=== PATIENT | female | born 1965 | race Two or more races ===

== ENCOUNTER 2024-09-22 09:52 | Outpatient (AMB) | payer MEDICAID, SELFPAY ==
[2024-09-22 10:29] VITALS: BP 162/89; PULSE 70; RESP 18; TEMP 36.6; O2SAT 97; BMI 29.5
--- NOTE | 2024-09-22 10:29 | PD.ORTHCLVIS ---
Vital signs 09/22/24 10:29 Height 1.6 m Height Method Stated Weight 75.523 kg Weight Measurement Method Standing Scale BMI 29.5 BP 162/89 H Blood Pressure Source Automatic Cuff Blood Pressure Location Right Upper Arm Position Sitting Respiration 18 Pulse 70 Pulse Source Monitor Temp 97.8 F Temp Source Temporal Artery Scan Pulse Oximetry (%) 97 Oxygen Delivery Method Room Air Med/Allergies Allergies & Medications Allergies No Known Allergies Allergy (Verified 09/22/24 10:30) Medication Reconciliation ergocalciferol (vitamin D2) 1,250 mcg (50,000 unit) capsule (Drisdol) 1,250 mcg PO QWEEK 05/15/24 [History Confirmed 09/22/24] losartan 100 mg tablet 100 mg PO DAILY 05/15/24 [History Confirmed 09/22/24] acetaminophen 500 mg tablet (Acetaminophen Extra Strength) 1,000 mg (2 x 500 mg) PO Q6H PRN pain #90 tabs 05/18/24 [Rx Confirmed 09/22/24] aspirin 81 mg tablet,delayed release 81 mg PO BID #60 tabs 05/18/24 [Rx Confirmed 09/22/24] doxycycline hyclate 100 mg tablet 100 mg PO BID #14 tabs 05/18/24 [Rx Confirmed 09/22/24] meloxicam 7.5 mg tablet 7.5 mg PO QDAY #30 tabs 05/18/24 [Rx Confirmed 09/22/24] oxycodone 5 mg tablet 5 mg PO Q6H PRN pain #28 tabs 05/18/24 [Rx Confirmed 09/22/24] sennosides 8.6 mg-docusate sodium 50 mg tablet (Senna-S) 1 tab-cap PO QDAY #30 tabs 05/18/24 [Rx Confirmed 09/22/24] acetaminophen 500 mg tablet (Acetaminophen Extra Strength) 1,000 mg (2 x 500 mg) PO Q6H PRN pain #90 tabs 06/01/24 [Rx Confirmed 09/22/24] oxycodone 5 mg tablet 5 mg PO Q6H PRN pain #28 tabs 06/01/24 [Rx Confirmed 09/22/24] gabapentin 300 mg capsule 300 mg PO .qhs #30 caps 06/18/24 [Rx Confirmed 09/22/24] meloxicam 7.5 mg tablet 7.5 mg PO QDAY #30 tabs 06/18/24 [Rx Confirmed 09/22/24] oxycodone 5 mg tablet 5 mg PO Q6H PRN pain #28 tabs 06/18/24 [Rx Confirmed 09/22/24] gabapentin 300 mg capsule 300 mg PO .qhs #60 caps 09/22/24 [Rx] Subjective Visit Visit for: follow up visit Immunization / Flu Flu Vaccine in the Last 12 Months: No Flu Vaccine Exclusion Criteria: No Exclusion Criteria History of Present Illness Chief complaint: POST OP R TKA Date of 1st surgery (if applicable): 05/18/24 Patient is 4 months postop status post right total knee replacement. She is doing well. She has minimal pain Personal History Red flag PMH: none (NON SMOKER ) Pain Pain level (0-10): 8 Pain duration: WHEN BENDING Pain location: posterior Pain quality: sharp, dull and aching Pain timing: night Associated signs & symptoms: weakness Ambulatory data Ambulatory device: cane Treatments Improvement with previous injections: No Improvement with PT: No Improvement with NSAIDS: no Review of Systems Review of Systems: All systems negative unless otherwise noted in HPI. Exam Exam Patient is in no acute distress and is cooperative with the examination today. Patient has a normal mood and affect. Breathing is nonlabored. In no respiratory distress. Bilateral extremities were evaluated and demonstrates sensation intact to light touch. Palpable pedal pulses are present. No significant edema is present. Right knee incision is clean dry and intact. Right knee range of motion is 0-1 20 Patient has cementless total knee replacement that is In good position and alignment Assessment and Plan Problem List (1) Bilateral primary osteoarthritis of knee: Status: Acute Plan: Patient is doing well from her total knee replacement (2) History of total right knee replacement: Status: Acute Plan Patient is a 58-year-old female status post right total knee replacement. She is doing well. She has minimal pain. The patient is doing well and we will see her in approximately 3-4 months Office Procedures GNS Level of Care Nursing/Assessment Patient Status: Established Patient Nursing Assessment/Reassesment: Medication Reconciliation, Update PMH in EMR and Vital Signs Coordination of Care: Complex Care and Chronic Disease 1-5, Education Complex Pt/Fam, Consent,records obtained, informed consent and Staff clarify orders Special Needs: Language special needs Established Patient Charge Established Patient Point Assignment: 90 Established Patient Point Charge: EP Level 3 (80-115) Past Medical History Past Medical History Have you ever been diagnosed with any of the following: Neurological Problems Seizures: No Fall's Palsy: Yes (left) Cardiology Problems Congestive Heart Failure: No Hypertension: Yes Varicose Veins: Yes Respiratory Problems Chronic Obstructive Pulmonary Disease (COPD): No Asthma: Yes Smoking: No Smoking Cessation Counseling: No Smoking Exposure: No Stomache/Intestinal Problems Hepatitis: No Genital/Urinary Problems Renal Disease: No Kidney Stones: Yes Reproductive Problems Previous Pregnancies: Yes Musculoskeletal Problems Arthritis: Yes Endocrine Problems Diabetes Mellitus Type 1: No Diabetes Mellitus Type 2: Yes (chooses not to take med) Other Problems Hospitalization: Yes (surgery) Shingles: No Blood Transfusions: Yes Blood Transfusion Reaction: No Anesthesia Reactions: No Chicken Pox: Yes Cancer: No Surgical History Hysterectomy: Yes
== END 2024-09-22 10:50 | disposition home or self-care (01) ==
PROVIDERS: PCP Physician Assistant; Referring Provider Physician Assistant; Supervising Provider Orthopaedic Surgery Adult Reconstructive Orthopaedic Surgery; Visit Provider Orthopaedic Surgery Adult Reconstructive Orthopaedic Surgery
DX: M17.0 Bilateral primary osteoarthritis of knee (principal); Z96.651 Presence of right artificial knee joint; I10 Essential (primary) hypertension
CPT/HCPCS: 99213; G0463

== ENCOUNTER 2024-10-20 09:51 | Outpatient (AMB) | payer MEDICAID, SELFPAY ==
[2024-10-20 10:20] VITALS: BP 122/77; PULSE 85; RESP 18; TEMP 36.1; O2SAT 98; BMI 29.9
--- NOTE | 2024-10-20 10:20 | PD.ORTHCLVIS ---
Vital signs 10/20/24 10:20 Height 1.6 m Height Method Stated Weight 76.742 kg Weight Measurement Method Standing Scale BMI 29.9 BP 122/77 Blood Pressure Source Automatic Cuff Blood Pressure Location Right Upper Arm Position Sitting Respiration 18 Pulse 85 Pulse Source Monitor Temp 96.9 F Temp Source Temporal Artery Scan Pulse Oximetry (%) 98 Oxygen Delivery Method Room Air Med/Allergies Allergies & Medications Allergies No Known Allergies Allergy (Verified 10/20/24 10:21) Medication Reconciliation losartan 100 mg tablet 100 mg PO DAILY 05/15/24 [History Confirmed 10/20/24] gabapentin 300 mg capsule 300 mg PO .qhs #60 caps 09/22/24 [Rx Confirmed 10/20/24] Subjective Visit Visit for: follow up visit and knee Immunization / Flu Flu Vaccine in the Last 12 Months: No Flu Vaccine Exclusion Criteria: Refused by Patient and No Exclusion Criteria History of Present Illness Chief complaint: FOLLOW UP ON KNEE PAIN Date of 1st surgery (if applicable): 05/18/24 Patient is 5 months postop status post right total knee replacement. She is doing well. She has minimal pain Personal History Red flag PMH: none (NON SMOKER ) Pain Pain level (0-10): 7 Pain duration: AT NIGHT Pain location: anterior and posterior Pain quality: sharp, burning, shocking, electric and tingling Pain timing: night and increases with activity Associated signs & symptoms: numbness Ambulatory data Ambulatory device: cane Treatments Improvement with previous injections: No Improvement with PT: No Improvement with NSAIDS: n/a Review of Systems Review of Systems: All systems negative unless otherwise noted in HPI. Exam Exam Patient is in no acute distress and is cooperative with the examination today. Patient has a normal mood and affect. Breathing is nonlabored. In no respiratory distress. Bilateral extremities were evaluated and demonstrates sensation intact to light touch. Palpable pedal pulses are present. No significant edema is present. Right knee incision is clean dry and intact. Right knee range of motion is 0-1 20 Patient has cementless total knee replacement that is In good position and alignment Assessment and Plan Problem List (1) Bilateral primary osteoarthritis of knee: Status: Acute Plan: Patient is doing well from her total knee replacement (2) History of total right knee replacement: Status: Acute Plan Patient is a 58-year-old female status post right total knee replacement. She is doing well. She has minimal pain. He has some pain posteriorly. We will send her prescription for therapy as she stopped it prematurely before due to pain. We will have to talk about her left knee at some point as this is bothering her significantly more than the right Office Procedures GNS Level of Care Nursing/Assessment Patient Status: Established Patient Nursing Assessment/Reassesment: Medication Reconciliation, Update PMH in EMR and Vital Signs Coordination of Care: Complex Care and Chronic Disease 1-5, Education Complex Pt/Fam, Consent,records obtained, informed consent, Results/Orders obtained and Staff clarify orders Special Needs: Language special needs Established Patient Charge Established Patient Point Assignment: 95 Established Patient Point Charge: EP Level 3 (80-115) Past Medical History Past Medical History Have you ever been diagnosed with any of the following: Neurological Problems Seizures: No Fall's Palsy: Yes (left) Cardiology Problems Congestive Heart Failure: No Hypertension: Yes Varicose Veins: Yes Respiratory Problems Chronic Obstructive Pulmonary Disease (COPD): No Asthma: Yes Smoking: No Smoking Cessation Counseling: No Smoking Exposure: No Stomache/Intestinal Problems Hepatitis: No Genital/Urinary Problems Renal Disease: No Kidney Stones: Yes Reproductive Problems Previous Pregnancies: Yes Musculoskeletal Problems Arthritis: Yes Endocrine Problems Diabetes Mellitus Type 1: No Diabetes Mellitus Type 2: Yes (chooses not to take med) Other Problems Hospitalization: Yes (surgery) Shingles: No Blood Transfusions: Yes Blood Transfusion Reaction: No Anesthesia Reactions: No Chicken Pox: Yes Cancer: No Surgical History Total Knee Replacement: Yes Hysterectomy: Yes
== END 2024-10-20 10:42 | disposition home or self-care (01) ==
PROVIDERS: PCP Physician Assistant; Referring Provider Physician Assistant; Supervising Provider Orthopaedic Surgery Adult Reconstructive Orthopaedic Surgery; Visit Provider Orthopaedic Surgery Adult Reconstructive Orthopaedic Surgery
DX: M17.0 Bilateral primary osteoarthritis of knee (principal); Z96.651 Presence of right artificial knee joint; I10 Essential (primary) hypertension; E11.9 Type 2 diabetes mellitus without complications
CPT/HCPCS: 99213; G0463

== ENCOUNTER 2024-10-22 12:43 | Emergency (ER) | payer MEDICAID, SELFPAY ==
[2024-10-22 12:58] VITALS: BP 171/88; PULSE 83; RESP 19; TEMP 36.9; O2SAT 98; BMI 29.9
--- NOTE | 2024-10-22 13:02 | XR_ITS ---
Examination: CT brain head without contrast. 2-D sagittal coronal reconstructions Date and time of exam:October 22, 2024 1310 hours INDICATIONS: Onset right-sided headache right-sided facial numbness today, history right-sided facial numbness March 01, 2024 CTDI: vol (mGy):45.6 DLP: (mGycm):926 Technique: Multiple CT axial sections of the brain have been obtained, 5 mm slice thickness. Contrast has not been administered. 2-D sagittal, coronal reconstructions have been obtained Low dose protocols were performed. One or more of the following dose reduction techniques were used; automated exposure control, adjustment of the mA and/or KV according to patient size, use of iterative reconstruction technique. Findings: No significant ventricular enlargement. Intra-axial or extra-axial hemorrhage density is not seen. No mass effect or midline shift Basal cisterns are not remarkable. Fourth ventricle is midline. Cranial vault intact. Impression: Negative for acute hemorrhage, mass effect or midline shift Brain MRI follow-up would best assess for acute ischemic change, demyelinating disease
--- NOTE | 2024-10-22 14:07 | EDNOTE_ITS ---
ED Dental RME/HPI General Chief complaint: Dental/Oral/Throat Stated complaint: Right side jaw numbnesss after teeth cleaning Time Seen by Provider: 10/22/24 12:45 Arrival date/time: 10/22/24 12:43 59-year-old female presents to the emergency department today with plaints of right-sided jaw numbness after acute cleaning today patient reports she just came from a dentist. Patient reports no fever nausea vomiting no chest pain or shortness of breath Limitations: no limitations Related Data Home Medications ?Medication ?Instructions ?Recorded ?Confirmed losartan 100 mg tablet 100 mg PO DAILY 05/15/24 10/20/24 Previous Rx's ?Medication ?Instructions ?Recorded gabapentin 300 mg capsule 300 mg PO .[facility] #60 caps 09/22/24 Allergies Allergy/AdvReac Type Severity Reaction Status Date / Time No Known Allergies Allergy Verified 10/20/24 10:21 Review of Systems Review of Systems Systems Reviewed: All systems reviewed, normal except as documented Constitutional Constitutional: Reports system reviewed and no additional complaints, except as documented, Denies fever(s) and Denies headache(s) Eyes Eyes: Reports system reviewed and no additional complaints, except as documented and Denies blurry vision ENT Ears, Nose, Mouth, and Throat: Reports system reviewed and no additional complaints, except as documented, Denies headache(s), Denies nasal congestion, Denies nasal discharge and Reports other (Right-sided facial numbness) Cardiovascular Cardiovascular: Reports system reviewed and no additional complaints, except as documented, Denies chest pain and Denies dyspnea Respiratory Respiratory: Reports system reviewed and no additional complaints, except as documented, Denies chest congestion, Denies cough and Denies dyspnea Gastrointestinal Gastrointestinal: Reports system reviewed and no additional complaints, except as documented and Denies abdominal pain Integumentary/Breasts Skin/Breast: Reports system reviewed and no additional complaints, except as documented and Denies rash Neurologic Neurologic: Reports system reviewed and no additional complaints, except as documented, Reports as per HPI and Denies headache(s) Past Medical History Past Medical History NEUROLOGIC: Positive Neurological Disorders and Fall's Palsy (left); Negative Seizures CARDIAC: Positive Cardiac Disorders, Hypertension and Varicose Veins; Negative Congestive Heart Failure RESPIRATORY: Positive Asthma; Negative Chronic Obstructive Pulmonary Disease (COPD), Smoking, Smoking Cessation Counseling or Smoking Exposure GASTROINTESTINAL: Negative Gastrointestinal Disorders or Hepatitis GENITOURINARY: Positive Genitourinary Disorders and Kidney Stones; Negative Renal Disease REPRODUCTIVE: Positive Previous Pregnancies MUSCULOSKELETAL: Positive Musculoskeletal Disorders and Arthritis ENDOCRINE: Positive Endocrine Disorders and Diabetes Mellitus Type 2 (chooses not to take med); Negative Diabetes Mellitus Type 1 HEMATOLOGIC: Negative Blood Disorders OTHER HISTORY: Positive Hospitalization (surgery), Blood Transfusions and Chic surendra Pox; Negative Autoimmune Disease, Shingles, Blood Transfusion Reaction, Anesthesia Reactions or Cancer Family History FAMILY HISTORY: Positive Family Cardiac Disorders and Family Surgery; Negative Family Psychiatric Problems, Family Respiratory Disorders, Family Gastrointestinal Problems, Family Cancer or Family Anesthesia Reaction Surgical History SURGICAL: Positive Nephrectomy (Left), Hysterectomy and Section Social History SMOKING STATUS: Never smoker ED Exam General Limitations: Present no limitations General appearance: Present alert and in no apparent distress Head Head exam: Present atraumatic Eye Eye exam: Present normal appearance, PERRL and EOMI ENT ENT exam: Present normal exam, normal oropharynx and mucous membranes moist Neck Neck exam: Present normal inspection, full ROM and trachea midline Chest Chest inspection: Present normal inspection and symmetric chest wall rise Respiratory Respiratory exam: Present normal lung sounds bilaterally Cardiovascular Cardiovascular exam: Present regular rate, normal rhythm and normal heart sounds Abdominal Exam Abdominal exam: Present soft and normal bowel sounds Extremities Exam Extremities exam: Present normal inspection and full ROM Back Exam Back exam: Present normal inspection and full ROM Neurological Exam Neurological exam: Present alert, oriented X3, CN II-XII intact, normal gait, reflexes normal and other (Normal neurological exam); Absent motor sensory deficit Psychiatric Psychiatric exam: Present normal affect and normal mood Skin Skin exam: Present warm, dry, intact and normal color Course Quality Measures none Orders Category Date Time Status CT head/brain wo con Stat Exams 10/22/24 13:02 Completed Vital Signs Vital signs: Vital Signs Temperature 98.4 F 10/22/24 12:58 Pulse Rate 83 10/22/24 12:58 Respiratory Rate 19 10/22/24 12:58 Blood Pressure 171/88 H 10/22/24 12:58 Pulse Oximetry (%) 98 10/22/24 12:58 Oxygen Delivery Method Room Air 10/22/24 12:58 O2 saturation 98% room air within normal limits Dental / Oral MDM Narrative MDM Narrative:: 59-year-old female presents to the emergency department today with plaints of right-sided jaw numbness after acute cleaning today patient reports she just came from a dentist. Patient reports no fever nausea vomiting no chest pain or shortness of breath On exam patient well-appearing patient does not appear toxic patient has no abnormal neurological findings CT scan of the head obtained no acute emergent findings noted I suspect this is from dental procedure and will result Patient discharged home in no distress to follow-up with primary care doctor in the next 24 to 48 hours and for any worsening symptoms to return to the ER immediately Patient data External records reviewed:: [facility] previous records Clinical information provided by:: patient Social determinants that could affect healthcare access:: none Patient has the following chronic illnesses:: See history How is presenting disease/condition affected by chronic disease/condition?: uneffected by Evaluation data The following diagnostics were reviewed and interpreted by me:: radiology exam(s) Lab and/or radiology exams considered but not ordered:: CT scan obtained Interpretation Summary: Reviewed by me Medications / Prescriptions Medications or Prescriptions considered but not ordered:: No meds Medication administrations:: No meds Consultations Consultation(s) initiated? (list below): No Diagnosis Dental Differential Diagnosis: gingival abscess, dental caries and dental abscess Most likely diagnosis given after review of the tests above:: Patient paresthesia Admission Indicated Admission indicated?: not indicated Admission Request Was there a request for admission?: No Disposition Plan Disposition Plan: Discharge Discharge Attestation Discharge Attestation: The patient and all family members were given an opportunity to ask questions and understood the discharge instructions. Discharge instructions specifically effects, indications for sooner follow up or return to the emergency department, and the expected course of current diagnosis. Patient condition: Stable Discharge Plan Plan Patient Disposition: HOME (Self Care) Disposition Comment: Stable Prescriptions/Referrals Prescriptions/Med Rec: No Action gabapentin 300 mg capsule 300 mg PO .qhs Qty: 60 1RF losartan 100 mg Tablet 100 mg PO DAILY Problem List Clinical Impression: Pain, dental Patient/Caregiver Discharge Instructions Education Materials: ED Dental Pain Additional Instructions: Please follow up with your primary care doctor in the next 24-48hrs for any worsening symptoms return here immediately Print Language: Mongolian Stand Alone Forms: Buffy Award Info., Patient Portal Info Letter PA/[employer]ORAT[employer] TECHNOLOGIST Supervising Physician PA/[employer] TECHNOLOGIST Supervising Physician: Dr. daley
== END 2024-10-22 15:24 | disposition home or self-care (01) ==
PROVIDERS: Emergency Provider Emergency Medicine; PCP Physician Assistant
DX: K08.89 Other specified disorders of teeth and supporting structures (principal); I10 Essential (primary) hypertension; E11.9 Type 2 diabetes mellitus without complications
CPT/HCPCS: 70450; 99284

== ENCOUNTER 2024-12-15 08:30 | Outpatient (RCR) | payer MEDICAID, SELFPAY ==
--- NOTE | 2024-12-15 08:50 | PTNOTE_ITS ---
PT OP Initial Eval Patient Information Outpatient Physical Therapy Treatment Date: 12/15/24 Visit Reasons: Right TKA Medical Diagnosis: Z96.651 Treatment Dx #1: R LE pain Start of Care: 12/15/24 Date of Onset: 05/18/24 Smoking Status Smoking Status: Never smoker Initial Assessment Subjective: Pt is 58 yr old german speaking female s/p R TKA last year presents ambulating without assistive device and reports pain behind the knee and into the calf. Pt is ambulating community distances at home and she can do ADL's independently. PMH: HTN, pre-DM Pt goal: to get rid of the pain behind the knee and calf mm Objective: R knee AROM: ? Flexion: 108 deg ? Extension: full ? SLR: ? 55 deg ? Strength: ? Quads and hamstrings 4-/5 ? TTP: min of lateral gastroc and popliteal fossa Assessment: Pt presentation consistent with post op R TKA with decreased ROM, strength ? and WB tolerance. Pt lacks flexion ROM that is limited by ? myofascial limitations and pain but it's improved from last round of therapy. Pt requires skilled therapy to improve ROM ? and strength and has good rehab potential.? Eval followed by HEP with printout. [employer] Att[employer] Goals 1. Independent with HEP 2. Decreased TTP from min to none of gastroc and posterior knee 3. Improved quad and hamstring strength to 4/5 Treatment Plan ?1. Manual therapy ? 2. Therex ? 3. Modalities as indicated, moist heat, ice, estim Frequency and Duration: 1-2x a week for 12 visits plus eval Certification Dates: 1/14/25 to 03/14/25 Procedure Charges OP PT Eval Mod Complex 30 minutes: Yes
== END 2025-01-01 23:59 | disposition home or self-care (01) ==
LOC: CPTX 08:30
PROVIDERS: PCP Physician Assistant; Referring Provider Orthopaedic Surgery Adult Reconstructive Orthopaedic Surgery; Visit Provider Orthopaedic Surgery Adult Reconstructive Orthopaedic Surgery
DX: M79.661 Pain in right lower leg (principal); Z96.651 Presence of right artificial knee joint
CPT/HCPCS: 97162

== ENCOUNTER → 2024-12-16 | Outpatient (CLI) | payer MEDICAID, SELFPAY ==
--- NOTE | 2024-12-16 10:06 | XR_ITS ---
Examination: Bilateral knees 2 views Right lateral knee left lateral knee 2 views Bilateral axial knees single view TECHNIQUE: Bilateral AP knees standing single view, bilateral PA knees standing single view 30 degrees flexion Staining right lateral knee left lateral knee 2 views Bilateral axial knees single view total 5 views Exam date and time: December 16, 2024 1040 hours INDICATIONS: Total right knee replacement May 2024 left knee pain 2 years. FINDINGS: Moderate osteopenia Total right knee arthroplasty. Satisfactory alignment. No loosening of the prosthetic components. Advanced narrowing medial joint space left knee No left knee fracture Significant osteoarthritis left patellofemoral joint IMPRESSION: Total right knee arthroplasty with satisfactory alignment Advanced narrowing medial joint space left knee Significant osteoarthritis left patellofemoral joint
== END | disposition home or self-care (01) ==
LOC: CDIM 09:48
PROVIDERS: PCP Physician Assistant; Referring Provider Orthopaedic Surgery Adult Reconstructive Orthopaedic Surgery; Visit Provider Orthopaedic Surgery Adult Reconstructive Orthopaedic Surgery
DX: M17.0 Bilateral primary osteoarthritis of knee (principal); M17.12 Unilateral primary osteoarthritis, left knee; M25.862 Other specified joint disorders, left knee; Z96.651 Presence of right artificial knee joint
CPT/HCPCS: 73564

== ENCOUNTER 2024-12-22 09:08 | Outpatient (AMB) | payer MEDICAID, SELFPAY ==
[2024-12-22 09:21] VITALS: BP 141/83; PULSE 75; RESP 18; TEMP 36.6; O2SAT 99; BMI 31.1
--- NOTE | 2024-12-22 09:21 | ORTHONT_ITS ---
Vital signs 12/22/24 09:21 Height 1.6 m Height Method Stated Weight 79.549 kg Weight Measurement Method Standing Scale BMI 31.1 BP 141/83 H Blood Pressure Source Automatic Cuff Blood Pressure Location Right Upper Arm Position Sitting Respiration 18 Pulse 75 Pulse Source Monitor Temp 97.8 F Temp Source Temporal Artery Scan Pulse Oximetry (%) 99 Oxygen Delivery Method Room Air Med/Allergies Allergies & Medications Allergies No Known Allergies Allergy (Verified 12/22/24 09:22) Medication Reconciliation losartan 100 mg tablet 100 mg PO DAILY 05/15/24 [History Confirmed 12/22/24] gabapentin 300 mg capsule 300 mg PO .qhs #60 caps 09/22/24 [Rx Confirmed 12/22/24] Exam Exam Patient is in no acute distress and is cooperative with the examination today. Patient has a normal mood and affect. Breathing is nonlabored. In no respiratory distress. Bilateral extremities were evaluated and demonstrates sensation intact to light touch. Palpable pedal pulses are present. No significant edema is present. Right knee incision is clean dry and intact. Right knee range of motion is 0-1 20. There is a small bump on the lateral one third of the patella. It feels like a bony protuberance. I thought it was a leftover piece of cement however, we never used cement at all in her knee. It could be a stitch versus a bony protuberance. Patient has cementless total knee replacement that is In good position and alignment Assessment and Plan Problem List (1) Bilateral primary osteoarthritis of knee: Status: Acute Plan: Patient is doing well from her total knee replacement. She is 6 months postop. She reports the right knee pain is better than the left. She would like a cortisone injection in her left Recommend knee cortisone injection as patient would like to proceed with conservative treatment at this time. The risks and benefits of the procedure were reviewed with the patient and patient gave verbal consent to continue with the procedure. Procedure: performed by Dr. Pickens Using sterile technique the left knee was thoroughly prepped with alcohol, and approximately 1 cc of Kenalog 40 mg/mL and 4 cc of 1% lidocaine was injected without resistance into the medial tibial femoral joint space. The patient tolerated the procedure. (2) History of total right knee replacement: Status: Acute Plan Patient is a 58-year-old female status post right total knee replacement. She is doing well. She has minimal pain. He has some pain posteriorly. We will send her prescription for therapy as she stopped it prematurely before due to pain. We will have to talk about her left knee at some point as this is bothering her significantly more than the right Office Procedures GNS Level of Care Nursing/Assessment Patient Status: Established Patient Nursing Assessment/Reassesment: Medication Reconciliation, Update PMH in EMR and Vital Signs Coordination of Care: Complex Care and Chronic Disease 1-5, Education Complex Pt/Fam, Consent,records obtained, informed consent, Results/Orders obtained and Staff clarify orders Special Needs: Language special needs Established Patient Charge Established Patient Point Assignment: 95 Established Patient Point Charge: EP Level 3 (80-115) Surgical Proc/IM SQ injection Major Surgical Procedure: Yes (LEFT KNEE INJECTION) Medication Given Medication Given Medication Given: Yes Documented Dose Given: 4 Route: Infiitration Medication Given Medication Given Medication Given: Yes Documented Dose Given: 1 Route: Infiitration Office Meds Xylocaine 10 mg/mL (1 %) injection solution Performing Provider: Andrew Pickens MD Performing Location: [facility] Administered by: Andrew Pickens MD on 12/22/24 09:40 Dose Route Admin Location Dispensed Lot Number Expiration Date [facility] Senior [employer] 20 mL Infiltration 20 mL [id number] [employer] triamcinolone acetonide 40 mg/mL suspension for injection Performing Provider: Andrew Pickens MD Performing Location: [facility] Administered by: Andrew Pickens MD on 12/22/24 09:40 Dose Route Admin Location Dispensed Lot Number Expiration Date [facility] Senior [employer] 40 mg intra-articular LEFT KNEE INJECTION 1 mL [id number] 04/01/26 1849-2516-97 TEVA PARENTERAL MA Intake Visit Data Collection New Patient or Established: Established Patient (seen at [facility] within 3 years) Reason for Visit:: F/U ON RIGHT TKA Seen by Clinical Staff ONLY (RN/MA): No Verbal consent obtained for Telemed visit?: No Technical Specialist Cytology Required: Yes PCP or OBGYN visit in last 3 months: Yes Hx Now: No Do You Feel Safe at Home: Yes Authorities Contacted: N/A Questionairres Past Medical History Past Medical History Have you ever been diagnosed with any of the following: Neurological Problems Seizures: No Fall's Palsy: Yes (left) Cardiology Problems Congestive Heart Failure: No Hypertension: Yes Varicose Veins: Yes Respiratory Problems Chronic Obstructive Pulmonary Disease (COPD): No Asthma: Yes Smoking: No Smoking Cessation Counseling: No Smoking Exposure: No Stomache/Intestinal Problems Hepatitis: No Genital/Urinary Problems Renal Disease: No Kidney Stones: Yes Reproductive Problems Previous Pregnancies: Yes Musculoskeletal Problems Arthritis: Yes Endocrine Problems Diabetes Mellitus Type 1: No Diabetes Mellitus Type 2: Yes (chooses not to take med) Other Problems Hospitalization: Yes (surgery) Shingles: No Blood Transfusions: Yes Blood Transfusion Reaction: No Anesthesia Reactions: No Chicken Pox: Yes Cancer: No Surgical History Total Knee Replacement: Yes Hysterectomy: Yes Subjective Visit Visit for: follow up visit and knee Immunization / Flu Flu Vaccine in the Last 12 Months: No Flu Vaccine Exclusion Criteria: No Exclusion Criteria History of Present Illness Chief complaint: right knee pain Patient is a 59-year-old female status post right total knee replacement. She does have a small half centimeter by half centimeter bump. It feels firm. She thinks that it occurred after surgery. She reports of some numbness and tingling and burning sensation on her knees and is overall doing well. Her right knee is bigger than the left Pain Pain level (0-10): 8 Pain duration: with movement Pain quality: aching Associated signs & symptoms: none Ambulatory data Ambulatory device: none Treatments Improvement with previous injections: No Improvement with PT: No Improvement with NSAIDS: no Review of Systems Review of Systems: All systems negative unless otherwise noted in HPI.
== END 2024-12-22 09:44 | disposition home or self-care (01) ==
PROVIDERS: PCP Physician Assistant; Referring Provider Physician Assistant; Supervising Provider Orthopaedic Surgery Adult Reconstructive Orthopaedic Surgery; Visit Provider Orthopaedic Surgery Adult Reconstructive Orthopaedic Surgery
DX: M17.0 Bilateral primary osteoarthritis of knee (principal); Z96.651 Presence of right artificial knee joint; I10 Essential (primary) hypertension; E11.9 Type 2 diabetes mellitus without complications
CPT/HCPCS: 20610; 99213; J3301; J3490; G0463

== ENCOUNTER 2025-01-27 15:00 | Outpatient (RCR) | payer MEDICAID, SELFPAY ==
--- NOTE | 2025-01-12 18:14 | PT.ODAYNRPT ---
PT Outpatient Daily Note OP Daily Note Outpatient Physical Therapy Treatment Date: 01/12/25 Visit Reasons: right knee surgery Subjective: Back of the knee hurts to fully extend in bed at night Objective: See F/S for therex MT: STM popliteal fossa x7' with flexbar Assessment: Min/mod TTP of posterior knee with MT Plan: Continue per POC Length of Time (minutes) of Treatment: 30 Minutes Procedure Charges Therapeutic Exercise 30 minutes: Yes
--- NOTE | 2025-01-14 18:18 | PT.ODAYNRPT ---
PT Outpatient Daily Note OP Daily Note Outpatient Physical Therapy Treatment Date: 01/14/25 Visit Reasons: right knee surgery Subjective: Back of the knee hurts to fully extend in bed at night Objective: See F/S for therex MT: STM popliteal fossa x7' with flexbar Assessment: Min/mod TTP of posterior knee with MT Plan: Continue per POC Length of Time (minutes) of Treatment: 30 Minutes Procedure Charges Therapeutic Exercise 30 minutes: Yes
--- NOTE | 2025-01-27 15:46 | PT.ODAYNRPT ---
PT Outpatient Daily Note OP Daily Note Outpatient Physical Therapy Treatment Date: 01/27/25 Visit Reasons: right knee surgery Subjective: Pt reports R knee is ok, c/o pain pointing to the back of R knee. Objective: Please see flow sheet for ther ex list. Assessment: Strengthening interventions completed with minimal pain and discomfort. Plan: Continue with POC. Length of Time (minutes) of Treatment: 30 Minutes Procedure Charges Therapeutic Exercise 30 minutes: Yes
== END 2025-01-29 23:59 | disposition home or self-care (01) ==
LOC: CPTX 15:00
PROVIDERS: PCP Orthopaedic Surgery Adult Reconstructive Orthopaedic Surgery; Referring Provider Orthopaedic Surgery Adult Reconstructive Orthopaedic Surgery; Visit Provider Orthopaedic Surgery Adult Reconstructive Orthopaedic Surgery
DX: M25.561 Pain in right knee (principal); Z96.651 Presence of right artificial knee joint; I10 Essential (primary) hypertension
CPT/HCPCS: 97110

== ENCOUNTER 2025-02-18 16:00 | Outpatient (RCR) | payer MEDICAID, SELFPAY ==
--- NOTE | 2025-02-02 18:32 | PT.ODAYNRPT ---
PT Outpatient Daily Note OP Daily Note Outpatient Physical Therapy Treatment Date: 02/02/25 Visit Reasons: RIGHT KNEE SURGERY Subjective: Pt says the pain is gone from the back of the knee and now it hurts on the inside of the knee. Objective: See F/S for therex MT: STM R medial knee x7' Assessment: Min TTP of medial knee with STM Plan: Continue per POC Length of Time (minutes) of Treatment: 30 Minutes Procedure Charges Therapeutic Exercise 30 minutes: Yes
--- NOTE | 2025-02-04 16:44 | PT.ODAYNRPT ---
PT Outpatient Daily Note OP Daily Note Outpatient Physical Therapy Treatment Date: 02/04/25 Visit Reasons: RIGHT KNEE SURGERY Subjective: Pt says the pain is gone from the back of the knee and now it hurts on the inside of the knee. Objective: See F/S for therex Assessment: Pt steps with caution with R foot due to medial knee pain Plan: Continue per POC Length of Time (minutes) of Treatment: 30 Minutes Procedure Charges Therapeutic Exercise 30 minutes: Yes
--- NOTE | 2025-02-11 17:58 | PT.ODAYNRPT ---
PT Outpatient Daily Note OP Daily Note Outpatient Physical Therapy Treatment Date: 02/11/25 Visit Reasons: RIGHT KNEE SURGERY Subjective: Pt says the pain is gone from the back of the knee and now it hurts on the inside of the knee. Objective: See F/S for therex MT: STM medial knee x7' Assessment: Pt steps with caution with R foot due to medial knee pain. Min TTP with manual therapy STM today. Plan: Continue per POC Length of Time (minutes) of Treatment: 30 Minutes Procedure Charges Therapeutic Exercise 30 minutes: Yes
--- NOTE | 2025-02-18 17:19 | PT.ODAYNRPT ---
PT Outpatient Daily Note OP Daily Note Outpatient Physical Therapy Treatment Date: 02/18/25 Visit Reasons: RIGHT KNEE SURGERY Subjective: Pt says the pain is gone from the back of the knee and now it hurts on the inside of the knee, not bad today Objective: See F/S for therex Assessment: Low tissue irritability with therex today Plan: Continue per POC Length of Time (minutes) of Treatment: 30 Minutes Procedure Charges Therapeutic Exercise 30 minutes: Yes
== END 2025-03-01 23:59 | disposition home or self-care (01) ==
LOC: CPTX 16:00
PROVIDERS: PCP Orthopaedic Surgery Adult Reconstructive Orthopaedic Surgery; Referring Provider Orthopaedic Surgery Adult Reconstructive Orthopaedic Surgery; Visit Provider Orthopaedic Surgery Adult Reconstructive Orthopaedic Surgery
DX: M79.661 Pain in right lower leg (principal); Z96.651 Presence of right artificial knee joint; I10 Essential (primary) hypertension
CPT/HCPCS: 97110

== ENCOUNTER → 2025-04-15 | Outpatient (CLI) | payer MEDICAID, SELFPAY ==
--- NOTE | 2025-04-15 14:00 | XR_ITS ---
Examination: Screening digital mammography, bilateral Computer aided detection 3-D breast Tomosynthesis, bilateral Date and time of exam: April 15, 2025 1418 hours Compared to mammograms dating to November 16, 2015 Indication: Screening Technique: Nonmagnified MLO, CC views of the breasts to been obtained, reconstructed from 3-D Tomosynthesis images. R2 computer aided detection program utilized for evaluation of suspicious masses and/or abnormal calcifications. 3-D Tomosynthesis images obtained. Findings: Scattered areas of fibroglandular density. 7 mm nodule retroareolar region left breast Impression: BI-RADS Category 0: Incomplete: Need additional imaging evaluation 7 mm nodule retroareolar region left breast, recommend follow-up spot tomographic views of this nodule as well as left breast sonography to complete the workup
== END | disposition home or self-care (01) ==
LOC: CDIM 14:10
PROVIDERS: PCP Family Medicine; Referring Provider Specialist; Visit Provider Specialist
DX: Z12.31 Encounter for screening mammogram for malignant neoplasm of breast (principal); N63.42 Unspecified lump in left breast, subareolar
CPT/HCPCS: 77063; 77067

== ENCOUNTER 2025-06-17 14:14 | Outpatient (AMB) | payer MEDICAID, SELFPAY ==
--- NOTE | 2025-06-17 14:42 | ORTHONT_ITS ---
Vital signs 06/17/25 14:44 Height 1.6 m Height Method Stated Weight 81.278 kg Weight Measurement Method Standing Scale BMI 31.7 BP 143/90 H Blood Pressure Source Automatic Cuff Blood Pressure Location Left Upper Arm Position Sitting Respiration 18 Pulse 67 Pulse Source Monitor Temp 97.8 F Temp Source Temporal Artery Scan Pulse Oximetry (%) 96 Oxygen Delivery Method Room Air Med/Allergies Allergies & Medications Allergies No Known Allergies Allergy (Verified 06/17/25 14:49) Exam Exam Patient is in no acute distress and is cooperative with the examination today. Patient has a normal mood and affect. Breathing is nonlabored. In no respiratory distress. Bilateral extremities were evaluated and demonstrates sensation intact to light touch. Palpable pedal pulses are present. No significant edema is present. Right knee incision is clean dry and intact. Right knee range of motion is 0-1 20. There is a small bump on the lateral one third of the patella. It feels like a bony protuberance. I thought it was a leftover piece of cement however, we never used cement at all in her knee. It could be a stitch versus a bony protuberance. Patient has cementless right total knee replacement that is In good position and alignment. The left knee has significant medial joint space narrowing Assessment and Plan Problem List (1) Bilateral primary osteoarthritis of knee: Status: Acute Plan: Patient is doing well from her total knee replacement. She is one year postop and she is doing well. We will see her in approximately 1-2 years or when she wants something done for her left knee (2) History of total right knee replacement: Status: Acute Office Procedures GNS Level of Care Nursing/Assessment Patient Status: Established Patient Nursing Assessment/Reassesment: Medication Reconciliation, Update PMH in EMR and Vital Signs Coordination of Care: Complex Care and Chronic Disease 1-5, Education Complex Pt/Fam, Consent,records obtained, informed consent, Results/Orders obtained and Staff clarify orders Special Needs: Language special needs Established Patient Charge Established Patient Point Assignment: 95 Established Patient Point Charge: EP Level 3 (80-115) MA Intake Visit Data Collection New Patient or Established: Established Patient (seen at [facility] within 3 years) Reason for Visit:: F/U ON RIGHT TKA Seen by Clinical Staff ONLY (RN/MA): No Verbal consent obtained for Telemed visit?: No Pharmacist In Charge Owner Required: Yes PCP or OBGYN visit in last 3 months: Yes Hx Now: No Do You Feel Safe at Home: Yes Authorities Contacted: N/A Questionairres Past Medical History Past Medical History Have you ever been diagnosed with any of the following: Neurological Problems Seizures: No Fall's Palsy: Yes (left) Cardiology Problems Congestive Heart Failure: No Hypertension: Yes Varicose Veins: Yes Respiratory Problems Chronic Obstructive Pulmonary Disease (COPD): No Asthma: Yes Smoking: No Smoking Cessation Counseling: No Smoking Exposure: No Stomache/Intestinal Problems Hepatitis: No Genital/Urinary Problems Renal Disease: No Kidney Stones: Yes Reproductive Problems Previous Pregnancies: Yes Musculoskeletal Problems Arthritis: Yes Endocrine Problems Diabetes Mellitus Type 1: No Diabetes Mellitus Type 2: Yes (chooses not to take med) Other Problems Hospitalization: Yes (surgery) Shingles: No Blood Transfusions: Yes Blood Transfusion Reaction: No Anesthesia Reactions: No Chicken Pox: Yes Cancer: No Surgical History Total Knee Replacement: Yes Hysterectomy: Yes Subjective Visit Visit for: follow up visit and knee Immunization / Flu Flu Vaccine in the Last 12 Months: No Flu Vaccine Exclusion Criteria: No Exclusion Criteria History of Present Illness Chief complaint: right knee pain Patient is a 59-year-old female status post right total knee replacement. She does have a small half centimeter by half centimeter bump. It feels firm. She thinks that it occurred after surgery. She reports some numbness and tingling and burning sensation on her knees and is overall doing well. Pain Pain level (0-10): 8 Pain duration: with movement Pain quality: aching Associated signs & symptoms: none Ambulatory data Ambulatory device: none Treatments Improvement with previous injections: No Improvement with PT: No Improvement with NSAIDS: no Review of Systems Review of Systems: All systems negative unless otherwise noted in HPI.
[2025-06-17 14:44] VITALS: BP 143/90; PULSE 67; RESP 18; TEMP 36.6; O2SAT 96; BMI 31.7
== END 2025-06-17 14:50 | disposition home or self-care (01) ==
LOC: HODSRG 14:14
PROVIDERS: PCP Physician Assistant; Referring Provider Physician Assistant; Supervising Provider Orthopaedic Surgery Adult Reconstructive Orthopaedic Surgery; Visit Provider Orthopaedic Surgery Adult Reconstructive Orthopaedic Surgery
DX: M17.0 Bilateral primary osteoarthritis of knee (principal); Z96.651 Presence of right artificial knee joint; I10 Essential (primary) hypertension; E11.9 Type 2 diabetes mellitus without complications
CPT/HCPCS: 99213; G0463

== ENCOUNTER → 2025-08-25 | Outpatient (CLI) | payer MEDICAID, SELFPAY ==
--- NOTE | 2025-08-25 13:00 | XR_ITS ---
Examination: Breast ultrasound, unilateral, left complete Date and time of exam: August 25, 2025, 1310 hours INDICATIONS: Mammogram April 15, 2025 17 mm nodule retroareolar region left breast Technique: Real-time banks scale ultrasonographic imaging performed left breast including all 4 quadrants as well as nipple retroareolar and axillary region. Findings: Retroareolar cyst 3 x 3 mm Retroareolar hyperechoic nodule 4 x 4 millimeter Dilated ducts in the breasts Axillary lymph node 2.8 cm IMPRESSION: BI-RADS Category 3: Probably benign findings Recommend 1 additional 6 month left breast sonogram follow-up to document stability of 4 x 4 millimeter retroareolar nodule
--- NOTE | 2025-08-25 13:30 | XR_ITS ---
Examination: Diagnostic digital mammography, unilateral, left Computer aided detection 3-D breast Tomosynthesis, unilateral Date and time of exam: August 25, 2025, 1324 hours INDICATIONS: Mammogram April 15, 2025 7 mm nodule retroareolar region left breast Technique: Nonmagnified MLO, CC views of the left breast have been obtained, reconstructed from 3-D Tomosynthesis images. R2 computer aided detection program utilized for evaluation of suspicious masses and/or abnormal calcifications. 3-D Tomosynthesis images obtained. Findings: Scattered areas of fibroglandular density 7 mm nodule is confirmed upper outer left breast anterior depth Impression: BI-RADS category 3: Probably benign findings One additional 6 month left mammogram follow-up is needed
== END | disposition home or self-care (01) ==
LOC: CDIM 12:57
PROVIDERS: PCP Family Medicine; Referring Provider Nurse Practitioner Family; Visit Provider Nurse Practitioner Family
DX: R92.332 Mammographic heterogeneous density, left breast (principal); N63.42 Unspecified lump in left breast, subareolar
CPT/HCPCS: 76641; 77061; 77065; G0279